=== PATIENT | male | born 1945 | race Caucasian/White ===

== ENCOUNTER 2016-09-21 13:29 | Emergency (ER) | payer MEDICARE ==
--- NOTE | 2016-09-21 15:50 | RAD ---
HISTORY: Trauma to right hand COMPARISONS: None VIEWS: 3, Frontal, lateral, and oblique views of the fifth digit of the right hand FINDINGS: BONE DENSITY: Normal. BONES: There is no displaced fracture. JOINTS: The fifth right DIP joint is held in flexion ALIGNMENT: There is no dislocation. SOFT TISSUES: Unremarkable. OTHER FINDINGS: None. IMPRESSION: NO ACUTE OSSEOUS INJURY. IF SYMPTOMS PERSIST, RECOMMEND REPEAT IMAGING.
[2016-09-21 15:58] VITALS: BP 137/86
--- NOTE | 2016-09-21 16:59 | UC ---
Hand/Wrist HPI - HPI Summary HPI Summary: TRAUMA TO FIFTH FINGER RIGHT HAND TWO DAYS AGO, SINCE THAT TIME (DISTAL PHALANGE ) REMAINS IN FLEXED POSITION. NON TENDER WITH MANUAL EXTENSION. NO HISTORY OF DIABETES. - History Of Current Complaint Chief Complaint: UCUpperExtremity Stated Complaint: FINGER (KNUCKLE)COMPLAINT Time Seen by Provider: 09/21/16 15:19 Hx Obtained From: Patient Onset/Duration: Sudden Onset Severity Initially: Mild Severity Currently: Mild Pain Intensity: 0 Pain Scale Used: Adult Non Verbal Character Of Pain: Dull Aggravating Factor(s): Other - FINGER STAYS FLEXED Alleviating: Nothing Associated Signs And Symptoms: Positive: Negative - Allergies/Home Medications Allergies/Adverse Reactions: Allergies Allergy/AdvReac Type Severity Reaction Status Date / Time Epinephrine Allergy Dizziness Verified 06/19/14 08:14 Home Medications: Home Medications Finasteride TAB* [Proscar TAB*] 5 mg PO DAILY 09/21/16 [History Confirmed ] PMH/Surg Hx/FS Hx/Imm Hx Previously Healthy: Yes Cardiovascular History Of: Reports: Cardiac Disorders - 2008 - Surgical History Surgical History: Yes Surgery Procedure, Year, and Place: double inguinal hernia age 2; tumor left breast - Family History Known Family History: Positive: None - Social History Occupation: Retired Lives: With Family Alcohol Use: Rare Substance Use Type: None Smoking Status (MU): Former Smoker Have You Smoked in the Last Year: No When Did the Patient Quit Smoking/Using Tobacco: 30 yrs ago - Immunization History Most Recent Influenza Vaccination: fall 2014 Most Recent Tetanus Shot: UNK Most Recent Pneumonia Vaccination: in the past Review of Systems Constitutional: Negative Skin: Negative Eyes: Negative ENT: Negative Respiratory: Negative Cardiovascular: Negative Gastrointestinal: Negative Genitourinary: Negative Motor: Negative Neurovascular: Negative Musculoskeletal: Arthralgia, Decreased ROM, Myalgia Neurological: Negative Psychological: Negative All Other Systems Reviewed And Are Negative: Yes Physical Exam Triage Information Reviewed: Yes Appearance: Well-Appearing, No Pain Distress, Well-Nourished Vital Signs: Initial Vital Signs Temp 98.8 F 09/21/16 14:12 Pulse 77 09/21/16 14:12 Resp 16 09/21/16 14:12 BP 139/82 09/21/16 14:12 Pulse Ox 100 09/21/16 14:12 Vital Signs Reviewed: Yes Eye Exam: Normal Eyes: Positive: Conjunctiva Clear ENT Exam: Normal ENT: Positive: Normal ENT inspection, Hearing grossly normal, Pharynx normal, TMs normal Dental Exam: Normal Neck exam: Normal Neck: Positive: Supple, Nontender, No Lymphadenopathy Respiratory Exam: Normal Respiratory: Positive: Chest non-tender, Lungs clear, Normal breath sounds, No respiratory distress, No accessory muscle use Cardiovascular Exam: Normal Cardiovascular: Positive: RRR, No Murmur, Pulses Normal Abdominal Exam: Normal Abdomen Description: Positive: Nontender, No Organomegaly Musculoskeletal: Positive: Strength Intact, No Edema, ROM Limited @ - RIGHT FIFTH DISTAL PHALANGE Neurological Exam: Normal Psychological Exam: Normal Psychological: Positive: Normal Response To Family Skin Exam: Normal Hand/Wrist Course/Dx - Differential Dx/Diagnosis Differential Diagnosis/HQI/PQRI: Sprain, Strain, Tendonitis, Tenosynovitis 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
== END 2016-09-21 16:45 | disposition home or self-care (01) ==
LOC: UCEAST 13:29
DX: M62.441 Contracture of muscle, right hand (principal); Z88.8 Allergy status to other drugs, medicaments and biological substances; Z87.891 Personal history of nicotine dependence
CPT/HCPCS: 73140; 99212; G0463

== ENCOUNTER 2017-08-16 09:47 | Inpatient (IN) | payer MEDICARE ==
[2017-08-16] MEDS ORDERED: Acetaminophen TAB* 325 MG PO PRN (19:23)
[2017-08-16] MEDS ORDERED: Zosyn per Pharmacy* NOTE FOLLOW UP PRN (20:13)
[2017-08-16] MEDS: NS 0.9% 1000 ML* 1,000 ML IV SCH (20:23)
[2017-08-16] MEDS ORDERED: ZOSYN 3.375 GM x ONE DOSE over 30 miuntes IVPB ×2 (20:30)
[2017-08-16] MEDS: Enoxaparin(*) 40 MG/0.4 ML SYR SUBCUT SCH (21:33)
[2017-08-17] MEDS: NS 0.9% 1000 ML* 1,000 ML IV SCH ×4 (01:05→23:17)
[2017-08-17] MEDS: Piperacillin/Tazobac ADVAN(*) 3.375 GM in NS 0.9% 100 ML* 100 ML IVPB SCH ×3 (01:56→16:55)
[2017-08-17 07:39] LABS: ABS Basophils 0 10^3/ul (0-0.2); ABS Eosinophils 0.3 10^3/ul (0-0.6); ABS Lymphocytes 0.3 10^3/ul (1.0-4.8); ABS Monocytes 0.4 10^3/ul (0-0.8); ABS Neutrophils 4.3 10^3/ul (1.5-7.7); ABS Nucleated RBC 0 10^3/ul; Eosinophil % 5.5 % (0-6); Hematocrit 29 % (42-52); Hemoglobin 10.2 g/dl (14.0-18.0); Lymphocyte % 6.4 % (25-47); Mean Corpuscular HGB Conc 35 g/dl (31-36); Mean Corpuscular Hemoglobin 35 pg (27-31); Mean Corpuscular Volume 100 fL (80-94); Mean Platelet Volume 11 um3 (7.4-10.4); Nucleated Red Blood Cells % 0; Platelet Count 134 10^3/ul (150-450); Red Blood Count 2.93 10^6/ul (4.0-5.4); Red Cell Distribution Width 14 % (10.5-15); White Blood Count 5.3 10^3/ul (3.5-10.8)
[2017-08-17 07:56] LABS: EGFR Non-African American 54.1 (>60)
[2017-08-17] MEDS: Cholecalciferol TAB* 1000 UNITS PO SCH (09:40)
[2017-08-17] MEDS: Finasteride TAB* 5 MG PO SCH (09:40)
[2017-08-17] MEDS: Aspirin EC Low Dose* 81 MG TAB.EC PO SCH (09:40)
[2017-08-17] MEDS ORDERED: Dexamethasone IV* 40 MG in NS 0.9% 50 ML* 50 ML IVPB ONE (10:00)
[2017-08-17] MEDS ORDERED: D5W IVPB ONE (10:13)
[2017-08-17] MEDS ORDERED: DEXAMETHASONE IVPB ONE (10:13)
[2017-08-17] MEDS ORDERED: Dexamethasone IV* 4 MG/ML 1 ML (4 MG) IVPB ONE (12:00)
[2017-08-17] MEDS: Enoxaparin(*) 40 MG/0.4 ML SYR SUBCUT SCH (19:58)
[2017-08-18] MEDS: Piperacillin/Tazobac ADVAN(*) 3.375 GM in NS 0.9% 100 ML* 100 ML IVPB SCH ×2 (02:00→09:14)
[2017-08-18] MEDS: NS 0.9% 1000 ML* 1,000 ML IV SCH ×2 (04:40→09:16)
[2017-08-18 06:10] LABS: ABS Basophils 0 10^3/ul (0-0.2); ABS Eosinophils 0 10^3/ul (0-0.6); ABS Lymphocytes 0.5 10^3/ul (1.0-4.8); ABS Monocytes 0.2 10^3/ul (0-0.8); ABS Neutrophils 4.3 10^3/ul (1.5-7.7); ABS Nucleated RBC 0 10^3/ul; Eosinophil % 0.1 % (0-6); Hematocrit 31 % (42-52); Hemoglobin 10.9 g/dl (14.0-18.0); Lymphocyte % 9.9 % (25-47); Mean Corpuscular HGB Conc 35 g/dl (31-36); Mean Corpuscular Hemoglobin 35 pg (27-31); Mean Corpuscular Volume 99 fL (80-94); Mean Platelet Volume 10 um3 (7.4-10.4); Nucleated Red Blood Cells % 0; Platelet Count 135 10^3/ul (150-450); Red Blood Count 3.12 10^6/ul (4.0-5.4); Red Cell Distribution Width 14 % (10.5-15)
[2017-08-18 06:26] LABS: EGFR Non-African American 64.9 (>60)
[2017-08-18] MEDS: Finasteride TAB* 5 MG PO SCH (09:11)
[2017-08-18] MEDS: Cholecalciferol TAB* 1000 UNITS PO SCH (09:11)
[2017-08-18] MEDS: Aspirin EC Low Dose* 81 MG TAB.EC PO SCH (09:11)
[2017-08-18 10:50] VITALS: BP 111/69
== END 2017-08-18 13:30 | disposition home or self-care (01) | DRG 872 ==
LOC: MED 09:47 → OBSVTOIN 08-17 09:47
PROVIDERS: ADMIT Internal Medicine Hematology & Oncology; ATTEND Internal Medicine Hematology & Oncology
DX: R78.81 Bacteremia (principal); C90.00 Multiple myeloma not having achieved remission; I95.9 Hypotension, unspecified; R50.9 Fever, unspecified; I25.10 Atherosclerotic heart disease of native coronary artery without angina pectoris; L27.0 Generalized skin eruption due to drugs and medicaments taken internally; T37.0X5A Adverse effect of sulfonamides, initial encounter; T37.5X5A Adverse effect of antiviral drugs, initial encounter; Y92.9 Unspecified place or not applicable; Z86.73 Personal history of transient ischemic attack (TIA), and cerebral infarction without residual deficits
CPT/HCPCS: 36415; 36592; 71046; 80048; 80053; 83605; 84145; 85025; 87040; 87502; 96360; 99223; 99233; 99238; A9270-GY; G0378; J1100; J1650; J2543

== ENCOUNTER 2019-05-03 09:34 | Day surgery (SDC) | payer MEDICARE ==
[~2019-05-03 09:34] MED LIST: Buffered Lidocaine 1% SYRIN* 1 ML/SYRINGE INTRADERM ONE
[2019-05-03] MEDS ORDERED: Midazolam* 1 MG/ML 2 ML VIAL (2 MG) ONE (11:05)
--- NOTE | 2019-05-03 12:40 | OP ---
DATE OF OPERATION: 05/03/2019 - [facility] DATE OF : 1945. SURGEON: Marcos Keen M.D. PREOPERATIVE DIAGNOSIS: Cataract and glaucoma right eye. POSTOPERATIVE DIAGNOSIS: Cataract and glaucoma right eye. OPERATIVE PROCEDURE: Extracapsular cataract extraction with intraocular lens implant and iStent right eye. DESCRIPTION OF PROCEDURE: The patient was brought to the operating room after being given 1/2% Alcaine with epinephrine drops in the preoperative area. The eye was prepped and draped in the usual sterile fashion. Sterile drape and eyelid speculum were placed. Again, topical 1/2% Alcaine with epinephrine was given. A paracentesis incision was made at the 9 o'clock position with the No.75 blade. Clear cornea incision 2.2 x 2.2-mm was created at the 12 o'clock position starting at the anterior limbus using the 2.2-mm keratome. The anterior chamber was irrigated with 0.4 mL of 1% non-preservative intracameral lidocaine and filled with DisCoVisc. A capsulorrhexis was completed using the cystotome and the Utrata forceps. Hydrodissection was performed with balanced salt solution. The lens nucleus was removed with the Phacoemulsification handpiece without incident. Cortex was removed with the irrigation-aspiration handpiece. The capsular bag was re-inflated using DisCoVisc and an [id number] implant was inserted with the shooter and followed by an iStent inject inserted at the 2 and 4 o'clock positions with the shooter. The irrigation-aspiration handpiece was used to remove all residual DisCoVisc. The eye was refilled with balanced salt solution and the wound checked and found to be watertight. Topical Maxitrol drops were given. [id number]/[facility] #: [id number] [facility]
[2019-05-03 12:50] VITALS: BP 118/72
[2019-05-03] MEDS ORDERED: Cyclopentolate 1% OPTH.SOL* 2 ML BTL ONE (13:51)
[2019-05-03] MEDS ORDERED: Ketorolac 0.5% OPHTH (NF) 0.5 % 5 ML BTL ONE (13:51)
[2019-05-03] MEDS ORDERED: Neomycin/Polymy/Dex OPTH.SUSP* MAXITROL 0.1% 5 ML ONE (13:51)
[2019-05-03] MEDS ORDERED: Proparacaine 0.5% OPHTH.SOL* 15 ML BTL ONE (13:51)
[2019-05-03] MEDS ORDERED: Lidocaine 1% MPF ** 5 ML VIAL ONE (13:51)
[2019-05-03] MEDS ORDERED: acetaZOLAMIDE TAB* 250 MG ONE (13:51)
[2019-05-03] MEDS ORDERED: Phenylephrine OPHTH SOL 2.5%* 2 ML ONE (13:51)
[2019-05-03] MEDS ORDERED: Lidocaine 2% w/ EPI 1:200,000* 20 ML SDV VIAL ONE (13:51)
[2019-05-03] MEDS ORDERED: Povidone Iodine 5% OPTH* 30 ML BTL ONE (13:51)
== END 2019-05-03 12:30 | disposition home or self-care (01) ==
LOC: OREAST 09:34 → MERGE 09:34 → OREAST 12:30
PROVIDERS: ATTEND Specialist
DX: H25.811 Combined forms of age-related cataract, right eye (principal); H40.1112 Primary open-angle glaucoma, right eye, moderate stage; H40.1121 Primary open-angle glaucoma, left eye, mild stage; H35.3132 Nonexudative age-related macular degeneration, bilateral, intermediate dry stage; Z87.891 Personal history of nicotine dependence; C90.00 Multiple myeloma not having achieved remission
CPT/HCPCS: A9270-GY; C1783; J2250; V2632

== ENCOUNTER 2019-05-10 08:30 | Day surgery (SDC) | payer MEDICARE ==
[2019-05-10] MEDS ORDERED: Midazolam* 1 MG/ML 2 ML VIAL (2 MG) ONE (10:24)
--- NOTE | 2019-05-10 12:25 | OP ---
OPERATIVE NOTE: DATE OF OPERATION: 05/10/19 DATE OF : [birth year] SURGEON: Marcos Keen MD PREOPERATIVE DIAGNOSIS: Cataract, left eye. POSTOPERATIVE DIAGNOSIS: Cataract, left eye. OPERATIVE PROCEDURE: Extracapsular cataract extraction with intraocular lens implant left eye. PROCEDURE: The patient was brought to the operating room after being given 1/2% Alcaine with epineph rine drops in the preoperative area. The eye was prepped and draped in the usual sterile fashion. S terile drape and eyelid speculum were placed. Again, topical 1/2% Alcaine with epinephrine was given . A paracentesis incision was made at the 3 o'clock position with the No.75 blade. Clear cornea inc ision 2.2 x 2.2-mm was created at the 6 o'clock position starting at the anterior limbus using the 2. 2-mm keratome. The anterior chamber was irrigated with 0.4 mL of 1% non-preservative intracameral li docaine and filled with DisCoVisc. A capsulorrhexis was completed using the cystotome and the Utrata forceps. Hydrodissection was performed with balanced salt solution. The lens nucleus was removed wi th the Phacoemulsification handpiece without incident. Cortex was removed with the irrigation-aspira tion handpiece. The capsular bag was re-inflated using DisCoVisc and an [id number] 15.5 implant was inse rted with the shooter followed by an iStent inject at 8 o'clock and 10 o'clock inserted with the shoo ter. The irrigation-aspiration handpiece was used to remove all residual DisCoVisc. The eye was ref illed with balanced salt solution and the wound checked and found to be watertight. Topical Maxitrol drops were given. [id number]/[facility] #: [id number]
[2019-05-10 13:26] VITALS: BP 130/70
[2019-05-10] MEDS ORDERED: Lidocaine 2% w/ EPI 1:200,000* 20 ML SDV VIAL ONE (14:54)
[2019-05-10] MEDS ORDERED: Ketorolac 0.5% OPHTH (NF) 0.5 % 5 ML BTL ONE (14:54)
[2019-05-10] MEDS ORDERED: Phenylephrine OPHTH SOL 2.5%* 2 ML ONE (14:54)
[2019-05-10] MEDS ORDERED: Povidone Iodine 5% OPTH* 30 ML BTL ONE (14:54)
[2019-05-10] MEDS ORDERED: Cyclopentolate 1% OPTH.SOL* 2 ML BTL ONE (14:54)
[2019-05-10] MEDS ORDERED: Proparacaine 0.5% OPHTH.SOL* 15 ML BTL ONE (14:54)
[2019-05-10] MEDS ORDERED: Lidocaine 1% MPF ** 5 ML VIAL ONE (14:54)
[2019-05-10] MEDS ORDERED: acetaZOLAMIDE TAB* 250 MG ONE (14:54)
[2019-05-10] MEDS ORDERED: Neomycin/Polymy/Dex OPTH.SUSP* MAXITROL 0.1% 5 ML ONE (14:54)
== END 2019-05-10 11:28 | disposition home or self-care (01) ==
LOC: OREAST 08:30 → MERGE 11:45
PROVIDERS: ATTEND Specialist
DX: H25.812 Combined forms of age-related cataract, left eye (principal); H40.1112 Primary open-angle glaucoma, right eye, moderate stage; H35.3132 Nonexudative age-related macular degeneration, bilateral, intermediate dry stage; Z96.1 Presence of intraocular lens; Z87.891 Personal history of nicotine dependence
CPT/HCPCS: A9270-GY; C1783; J2250; V2632

== ENCOUNTER 2023-02-07 23:54 | Observation (INO) ==
[2023-02-08] MEDS ORDERED: Lactated Ringers 1000 ml BAG 1,000 ML IV ONE (01:31)
[2023-02-08 01:57] LABS: ABS Eosinophils 0.1 10^3/uL (0.0-0.5); ABS Monocytes 0.9 10^3/uL (0.0-1.1); ABS Neutrophils 12.4 10^3/uL (1.5-7.6); Eosinophil % 0.5 %; Hematocrit 31.6 % (38-53); Hemoglobin 10.9 g/dL (13.2-16.3); Lymphocyte % 7.2 %; Mean Corpuscular Hemoglobin 32.2 pg (27-33); Mean Corpuscular Hgb Conc 34.3 g/dL (31-36); Mean Corpuscular Volume 93.7 fL (80-97); Mean Platelet Volume 8.1 fL (7.5-11.2); Platelet Count 338 10^3/uL (150-450); Red Blood Count 3.38 10^6/uL (4.06-5.63); Red Cell Distribution Width 15.2 % (12-17); White Blood Count 14.4 10^3/uL (3.6-10.2)
[2023-02-08 02:08] LABS: Albumin 2.9 g/dL (3.2-5.2); Calcium 8.3 mg/dL (8.6-10.3); Potassium 4.5 mmol/L (3.5-5.0); Total Bilirubin 0.6 mg/dL (0.2-1.0)
[2023-02-08 02:14] LABS: Albumin/Globulin Ratio 0.9 (1-3); Creatinine, Serum 0.92 mg/dL (0.67-1.17); Globulin 3.4 g/dL (2-4); Total Protein 6.3 g/dL (6.4-8.9); eGFR CKD-EPI 85.1 (>60)
[2023-02-08 03:20] LABS: Urine Appearance Clear; Urine Bilirubin Negative (Negative); Urine Blood 2+ (Negative); Urine Color Straw; Urine Glucose Negative (Negative); Urine Ketones Negative (Negative); Urine Nitrite Negative (Negative); Urine Protein Negative (Negative); Urine Specific Gravity 1.006 (1.002-1.030); Urine Urobilinogen Negative (Negative)
[2023-02-08 03:37] LABS: Urine Bacteria 1+ (Absent); Urine Red Blood Cell 1+(3-5/hpf) (Absent); Urine White Blood Cell Absent (Absent)
[2023-02-08] MEDS ORDERED: cefTRIAXone 2 GM ADDV.VIAL 2 GM in NS 0.9% 100 ml BAG 100 ML IV ONE (03:59)
[2023-02-08] MEDS ORDERED: cefTRIAXone 2 gm/50 mL D5W 2 GM/50 ML BAG IV ONE (07:15)
[2023-02-08 07:39] LABS: C Reactive Protein 148.92 mg/L (<8.01)
[2023-02-08] MEDS: DULoxetine DR 20 mg CAP PO SCH (09:42)
[2023-02-08] MEDS: CMCS:Brimonidine/Timolol 0.2%/0.5% OPTH(NF) SOL 5 ML BOTH EYES SCH ×2 (09:48→23:22)
[2023-02-08] MEDS: DOXYcycline 100 MG in NS 0.9% 250 ml 250 ML IVPB SCH (18:09)
[2023-02-08 23:01] LABS: High Sensitivity Troponin 1 Hr 7 pg/mL (<20)
[2023-02-09] MEDS: DOXYcycline 100 MG in NS 0.9% 250 ml 250 ML IVPB SCH (04:49)
[2023-02-09 06:50] LABS: ABS Lymphocytes 1.2 10^3/uL (1.0-4.8); ABS Monocytes 0.9 10^3/uL (0.0-1.1); ABS Neutrophils 18.4 10^3/uL (1.5-7.6); Hematocrit 29.1 % (38-53); Hemoglobin 9.8 g/dL (13.2-16.3); Lymphocyte % 5.8 %; Mean Corpuscular Hemoglobin 31.9 pg (27-33); Mean Corpuscular Hgb Conc 33.8 g/dL (31-36); Mean Corpuscular Volume 94.3 fL (80-97); Mean Platelet Volume 8.5 fL (7.5-11.2); Platelet Count 337 10^3/uL (150-450); Red Blood Count 3.08 10^6/uL (4.06-5.63); White Blood Count 20.4 10^3/uL (3.6-10.2)
[2023-02-09] MEDS ORDERED: cefTRIAXone 2 gm/50 mL D5W 2 GM/50 ML BAG IV ONE (07:00)
[2023-02-09 07:01] LABS: Calcium 8.4 mg/dL (8.6-10.3); Creatinine, Serum 0.79 mg/dL (0.67-1.17); Magnesium 2.1 mg/dL (1.9-2.7); Potassium 3.9 mmol/L (3.5-5.0); eGFR CKD-EPI 90.9 (>60)
[2023-02-09] MEDS: DULoxetine DR 20 mg CAP PO SCH (09:50)
[2023-02-09 10:08] VITALS: BP 143/86
[2023-02-10 13:53] LABS: Anaplasma phagocytophilum Negative (Negative); B. miyamotoi PCR, B Negative (Negative); Babesia divergens/MO-1 Negative (Negative); Babesia ducani Negative (Negative); Ehrlichia chaffeensis Negative (Negative); Ehrlichia ewingii/canis Negative (Negative); Ehrlichia muris eauclairensis Negative (Negative)
[2023-02-11 17:01] LABS: IgG Immunoblot Negative (Negative); IgM Immunoblot Positive (Negative)
== END 2023-02-09 11:40 | disposition home or self-care (01) ==
LOC: ED 23:54 → EDHOLD 23:54 → SUATTDRO 02-08 05:13 → MED 02-08 10:09
PROVIDERS: ADMIT Internal Medicine; ATTEND Hospitalist